=== PATIENT | male | born 1960 | race Caucasian/White ===

== ENCOUNTER 2020-05-17 07:00 | Day surgery (SDC) | payer OTHER ==
[2020-05-14 13:28] LABS: Absolute Lymphocytes (CBC) 1.9 K/uL (0.7-4.9); Basophils % 0.4 % (0-1.3); Hematocrit 48.7 % (39.6-49.0); Lymphocytes % 19.9 % (15.3-44.8); MPV 8.1 fL (7.6-11.3); RBC Red Blood Cell Count 5.01 M/uL (4.33-5.43)
[2020-05-14 13:35] LABS: Protime INR 0.98
[~2020-05-17 07:00] MED LIST: HEPA 1000U/500MLS 2,000 UNIT/1,000 ML BAG IV ONE; LIDOCAINE 1% MPF 30 ML VIAL ONE; NA CHLORIDE 0.9% 100 ML IV ONE; NA CHLORIDE 0.9% 500 ML ONE
[2020-05-17] MEDS ORDERED: FENTANYL CITR 100 MCG/2 ML ONE (07:12)
[2020-05-17] MEDS ORDERED: MIDAZOLAM HCL 2 MG/2 ML INJ ONE ×3 (07:12→08:35)
[2020-05-17] MEDS ORDERED: ATROPINE SULF 1 MG/10 ML SYR IV ONE (07:13)
[2020-05-17] MEDS ORDERED: NITROGLYCERIN 100 MCG/ML SYR (for cath lab use only) IV ONE (07:13)
[2020-05-17] MEDS ORDERED: NITROGLYCERIN/D5W 25 MG/250 ML BTL IV ONE (07:13)
[2020-05-17] MEDS ORDERED: HEPARIN 5000 UNIT/ML 1 ML VIAL ONE ×2 (07:14→07:21)
[2020-05-17] MEDS ORDERED: NICARDIPINE HCL 25 MG/10 ML IV ONE (07:21)
[2020-05-17] MEDS ORDERED: NA CHLORIDE 0.9% 500 ML ONE (07:35)
[2020-05-17 10:09] VITALS: O2SAT 99
--- OUTSIDE RECORDS SUMMARY | 2020-05-17 10:28 | XMS REPORT | Continuity of Care Document ---
:1960 Author Organization [facility] Care Team Providers Name Role Phone [facility] Unavailable Un available Problems Problem Status Onset Classification Date Comments Sourc e Date Reported Simple Active Problem 10/08/2017 [facility] [place] Neuro (disorder) Medications No Data Provided for This Section Allergies, Adverse Reactions, Alerts No Known Medication Allergies Immunizations No Data Provided for This Section Results No Data Provided for This Section Pathology Reports No Data Provided for This Section Diagnostic Reports No Data Provided for This Section Consultation Notes No Data Provided for This Section Discharge Summaries No Data Provided for This Section History and Physicals No Data Provided for This Section Vital Signs No Data Provided for This Section Encounters Location Location Encounter Encounter Reason Attending ADM PA Stat us Source Details Type Number For Provider Date Date Visit Outpatient [id number] [place] 06/[address] [facility] Outpatient [id number] [place] 07/[address] [facility] MNA Outside [id number] 10/04 10/06 [facility] Neurosurger Medical /2016 [place] Records Procedures No Data Provided for This Section Assessment and Plan No Data Provided for This Section Plan of Care No Data Provided for This Section Social History Social History Date Source Social History [facility] Sm[facility] Status Never smoker; Exposure to Tobacco Smoke None; Cigarette Smoking Last 365 Days No; Reg Smoking Cessation Counseling No Family History No Data Provided for This Section Advance Directives No Data Provided for This Section Functional Status No Data Provided for This Section
--- OUTSIDE RECORDS SUMMARY | 2020-05-17 10:28 | XMS REPORT | Continuity of Care Document ---
:1960 Author Organization [facility] t Address [address] [place] [address] Care Team Providers Name Role Phone Jie KELSEY Attending Clinician Problems Condition Condition Condition Status Onset Resolution Last Treating Co mments Source Name Details Category Date Date Treatment Clinician Date Simple Problem Active 2017-10-08 [facility] obesity 03:30:12 l (disorder) Simple Herm trang obesity (disorder) Active Problem 10/08/2017 [facility] Allergies, Adverse Reactions, Alerts This patient has no known allergies or adverse reactions. Social History Smoking Status Start Date Stop Date Source Social History [facility] Medications This patient has no known medications. Procedures This patient has no known procedures. Encounters Start End Encounter Admission Attending Care Care Encounter Source Date/Time Date/Time Type Type Clinicians Facility Department ID 2020-04-28 2020-04-28 [facility] [id number] 09:28:00 23:59:00 Encounter Andreina Padmini [id number] eliana Eduardo [id number] [place] [id number] 2017-10-04 2017-10-05 Outpatient MHMISCHER MISCHER [id number] 12:16:00 23:59:59 11 Results This patient has no known results.
--- OUTSIDE RECORDS SUMMARY | 2020-05-17 10:29 | XMS REPORT | Summary of Care ---
:1960 Author Organization [facility] Address [address] [place] [id number] Care Team Providers Name Role Phone oRbina Kernrosie Ford Primary Care Provider Reason for Visit (Routine) Status Reason Specialty Diagnoses / Procedures Referred By C ontact Referred To Contact Closed Radiology Procedures Waqas Ceron X-Ray XR CHEST 2 MD Nima [address] [place] [address] XR CHEST 2 [address] [place] [phone] Phone: Fax: Encounter Details Date Type Department Care Team Description 04/28/2020 Hospital Encounter [facility] Sergio Ceron rrived [place] Rad[facility] MD Nima [address] [place] [address] [address] [place] [address] [place] [address] [phone] Allergies No Known Allergiesdocumented as of this encounter (statuses as of 04/29/2020) Medications Medication Sig Dispensed Refills Start Date End Date Status gabapentin (NEURONTIN) Take 600 mg by 0 03/29/2016 Active 600 mg tablet mouth 4 (four) times daily. documented as of this encounter (statuses as of 04/29/2020) Active Problems Problem Noted Date Left shoulder pain 04/12/2016 documented as of this encounter (statuses as of 04/29/2020) Social History Tobacco Use Types Packs/Day Years Used Date Never Smoker Smokeless Tobacco: Never Used Alcohol Use Drinks/Week oz/Week Comments Yes 0 Standard drinks or equivalent 0.0 occasional; not weekly Sex Assigned at Date Recorded Not on file Job Start Date Occupation Industry Not on file Not on file Not on file Travel History Travel Start Travel End No recent travel history available. COVID-19 Exposure Response Date Recorded In the last month, have you been in contact with No / Unsure 04/28/2020 9:28 AM CDT someone who was confirmed or suspected to have Coronavirus / COVID-19? documented as of this encounter Last Filed Vital Signs Not on filedocumented in this encounter Plan of Treatment Health Maintenance Due Date Last Done Comments HEPATITIS C (HCV) SCREEN 1960 DTaP,Tdap,and Td Vaccines (1 1973 - Tdap) Depression Screening 1974 Zoster Recombinant Vaccine 2012 (SHINGRIX) (1 of 2) INFLUENZA VACCINE (Season 07/20/2020 Ended) COLONOSCOPY 12/02/2024 12/02/2014 (Previously completed) PNEUMOCOCCAL 0-64 YEARS Aged Out No longe r eligible based COMBINED SERIES on patient's age to complete this to [facility] documented as of this encounter Procedures Procedure Name Priority Date/Time Associated Comments Diagnosis XR CHEST 2 VW Routine 04/28/2020 9:49 Shortness of Results fo r this AM CDT breath procedure are i n the results section. NOTICE OF BILLING Routine 04/28/2020 9:30 PRACTICES FOR MEDICARE AM CDT PATIENTS [facility] PATIENT FINANCIAL Routine 04/28/2020 9:29 POLICY AM CDT [facility] PATIENT FINANCIAL Routine 04/28/2020 9:29 POLICY AM CDT NO SHOW OR MISSED Routine 04/28/2020 9:29 APPOINTMENT POLICY AM CDT ACKNOWLEDGEMENT NOTICE OF PRIVACY Routine 04/28/2020 9:29 PRACTICES AM CDT CONSENT/REFUSAL FOR Routine 04/28/2020 9:28 DIAGNOSIS AND TREATMENT AM CDT ASSIGNMENT OF BENEFITS Routine 04/28/2020 9:28 AM CDT documented in this encounter Results XR CHEST 2 VW (04/28/2020 9:49 AM CDT) Specimen Narrative Performed At This result has an attachment that is no t available. EXAM: XR CHEST 2 VW PACS/VR/DOSE HISTORY: Shortness of breath COMPARISON: None. FINDINGS: The heart and great vessels are normal and the lungs a re well expanded and clear. The neck has been partly fused. Procedure Note [facility], Radiant Results Inft User - 2019 10:03 AM CDT EXAM: XR CHEST 2 VW HISTORY: Shortness of breath COMPARISON: None. FINDINGS: The heart and great vessels are normal a nd the lungs are well expanded and clear. The neck has been partly fused. Performing Organization Address City/State/Zipcode Phone Number PACS/VR/DOSE documented in this encounter Visit Diagnoses Diagnosis Shortness of breath documented in this encounter Insurance Payer Benefit Plan / Subscriber ID Effective Dates Phone Addre ss Type Group MEDICARE MEDICARE PART xxxxxxxxxxx 2019-William [phone] Medicare A & B t 2 [id number] [place] [phone] documented as of this encounter
[2020-05-17 10:49] VITALS: BP 151/83; TEMP 97.3
--- NOTE | 2020-05-17 13:13 | OP ---
Date of Procedure: 05/17/2020 Surgeon: MIYA BAILEY Procedure Performed: 1.Selective coronary angiogram. 2.Right heart catheterization. Indication: 1.Unstable angina. 2.Dyspnea on exertion. Access: Right radial artery 6-Monegasque closed with TR band, right IJ vein, 7-Monegasque closed with manual pressure. Total Sedation Time: 32 minutes. Complications: None. Bleeding: Less than 5 mL. Description Of Procedure: Patient was brought into the cardiac catheterization laboratory, prepped a nd draped in the usual sterile fashion. Then, we access right radial artery using micropuncture kit, inserted a 6-Monegasque slender sheath and we access the right IJ using ultrasound guidance, inserted a 7-Monegasque sheath in place without complications and subsequently we took a 7-Monegasque [place] catheter thro ugh the IJ access into the right atrium, pressure was recorded. Then, the right ventricle pressure w as recorded, then advanced to the pulmonary artery and pressure was recorded. Then, wedge was record ed and then catheter was removed. Subsequently, we took a 5-Monegasque [place] catheter through the right radial artery over the J-wire into the aortic root, engaged the right coronary artery and then the le ft main coronary artery and took standard views and then removed all wires and catheter and closed th e right radial artery access with TR band with good hemostasis and then removed the 7-Monegasque from the right IJ and the access was closed with manual pressure. Findings: 1.Normal coronary arteries. No significant coronary artery disease was found. 2.Normal filling pressures with RA of 2, RV of 2 mmHg, PA pressure of 19/2 with a mean of 7 and wedg e pressure of 4 mmHg. Arterial opening pressure was 136/82. Recommendations: 1.To continue lifestyle modification and cardiac risk factor management. 2.Discharge home once discharge criteria met. SR/MODL Voice ID: [id number] Report ID: [id number]
== END 2020-05-17 10:41 | disposition home or self-care (01) ==
LOC: CCL 07:00
PROVIDERS: ATTEND Internal Medicine
DX: I20.0 Unstable angina (principal); R06.00 Dyspnea, unspecified; Z11.59 Encounter for screening for other viral diseases
CPT/HCPCS: 85025; 80048; 36415; 85610; 85730; 93456; U0002; C1893; J1644; J2250 ×3; J3010; J7040 ×2